=== PATIENT | male | born 1995 ===

== ENCOUNTER 2018-07-02 21:28 | Emergency (ER) | payer SELFPAY ==
[2018-07-02 21:36] VITALS: BP 145/84
[2018-07-02] MEDS ORDERED: Tetracaine 0.5% OPTH.SOL 4 ML* 1 DROP BTL ONE (21:39)
[2018-07-02] MEDS ORDERED: Fluorescein Sodium TOPICAL* 1 MG TEST STRIP ONE (21:39)
[2018-07-02] MEDS ORDERED: BSS OPTH.SOL* BTL ONE (21:39)
--- NOTE | 2018-07-02 22:01 | UC ---
Eye Complaint HPI - HPI Summary HPI Summary: feels like his soft contact lens is up under his eye lid- - History of Current Complaint Chief Complaint: UCEye Stated Complaint: EYE COMPLAINT Time Seen by Provider: 07/02/18 21:47 Hx Obtained From: Patient Onset/Duration: Sudden Onset, Lasting Hours Timing: Constant Pain Intensity: 2 Pain Scale Used: 0-10 Numeric Character: Foreign Body Sensation Aggravating Factor(s): Nothing Alleviating Factor(s): Nothing Associated Signs And Symptoms: Positive: Negative - Allergies/Home Medications Allergies/Adverse Reactions: Allergies Allergy/AdvReac Type Severity Reaction Status Date / Time No Known Allergies Allergy Verified 07/02/18 21:36 Home Medications: Home Medications NK [No Home Medications Reported] 07/02/18 [History Confirmed 07/02/18] PMH/Surg Hx/FS Hx/Imm Hx Previously Healthy: Yes - Surgical History Surgical History: None - Family History Known Family History: Positive: None - Social History Occupation: Employed Full-time Lives: With Family Alcohol Use: None Substance Use Type: None Smoking Status (MU): Never Smoked Tobacco Review of Systems All Other Systems Reviewed And Are Negative: Yes Constitutional: Positive: Negative Skin: Positive: Negative Eyes: Positive: Drainage - clear, Eye Redness - os ENT: Positive: Negative Respiratory: Positive: Negative Cardiovascular: Positive: Negative Gastrointestinal: Positive: Negative Genitourinary: Positive: Negative Motor: Positive: Negative Neurovascular: Positive: Negative Musculoskeletal: Positive: Negative Neurological: Positive: Negative Psychological: Positive: Negative Is Patient Immunocompromised?: No Physical Exam Triage Information Reviewed: Yes Appearance: Well-Appearing, No Pain Distress, Well-Nourished Vital Signs: Initial Vital Signs Temp 98 F 07/02/18 21:32 Pulse 77 07/02/18 21:32 Resp 16 07/02/18 21:32 BP 145/84 07/02/18 21:32 Pulse Ox 98 07/02/18 21:32 Vital Signs Reviewed: Yes Eye Exam: Normal Eyes: Positive: Conjunctiva Inflamed - os, Discharge - clear ENT Exam: Normal ENT: Positive: Normal ENT inspection, Hearing grossly normal. Negative: Trismus , Muffled voice, Hoarse voice Dental Exam: Normal Neck exam: Normal Neck: Positive: Supple, Nontender Respiratory Exam: Normal Respiratory: Positive: Chest non-tender, No respiratory distress, No accessory muscle use Cardiovascular Exam: Normal Cardiovascular: Positive: RRR, Pulses Normal, Brisk Capillary Refill Musculoskeletal Exam: Normal Musculoskeletal: Positive: Strength Intact, ROM Intact, No Edema Neurological Exam: Normal Neurological: Positive: Alert, Muscle Tone Normal Psychological Exam: Normal Skin Exam: Normal Re-Evaluation - Re-Evaluation First Eval Change: Unchanged - eye stained, and lid inverted, examined myself and Dr. 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 Discharge - Sign-Out/Discharge Documenting (check all that apply): Patient Departure All imaging exams completed and their final reports reviewed: No Studies - Discharge Plan Condition: Stable Disposition: HOME Patient Education Materials: Eye Foreign Body (ED), Hypertension (ED) Referrals: [facility] [Outside] - 2 Weeks Additional Instructions: Follow with you eye care doctor or return as needed - Billing Disposition and Condition Condition: STABLE Disposition: Home - Attestation Statements Provider Attestation: Per institutional requirements, I have reviewed the chart, however, I was not consulted specifically or made aware of this patient by the midlevel provider. I did not personally evaluate, interact with , or disposition this patient.
== END 2018-07-02 22:20 | disposition home or self-care (01) ==
LOC: UCEAST 21:28
DX: H18.822 Corneal disorder due to contact lens, left eye (principal)
CPT/HCPCS: 99201; A9270-GY; G0463

== ENCOUNTER 2018-08-15 17:13 | Emergency (ER) | payer BC ==
--- NOTE | 2018-08-15 17:24 | UC ---
FLU HPI - HPI Summary HPI Summary: 23 yo male presents with flu like symptoms. He tells me that 1 week ago he develop sinus congestion, dry cough, and sore throat with a fever of 102F. Fever lasted 2-3 days and then resolved. Over the last 4 days he has had some nausea and loose stools about 4-5 times a day, but remains afebrile. He has been taking mucinex and ibuprofen OTC for his symptoms with good relief. He is eating and drinking, but says it is decreased due to nausea. Denies fever, chills, SOB, chest pain, abdominal pain, dysuria. No recent travel or anbx use. - History of Current Complaint Stated Complaint: FLU LIKE SYMP Time Seen by Provider: 08/15/18 17:24 Hx Obtained From: Patient Onset/Duration: Gradual Onset Severity Currently: Mild Severity Initially: Mild Pain Intensity: 3 Pain Scale Used: 0-10 Numeric - Allergy/Home Medications Allergies/Adverse Reactions: Allergies Allergy/AdvReac Type Severity Reaction Status Date / Time No Known Allergies Allergy Verified 08/15/18 17:29 Home Medications: Home Medications Guaifenesin/Dextromethorphan [Mucinex Dm ER 600-30 mg Tablet] 1 each PO ONCE PRN 08/15/18 [History Confirmed 08/15/18] Ibuprofen TAB* [Advil TAB*] 400 mg PO Q6H PRN 08/15/18 [History Confirmed ] PMH/Surg Hx/FS Hx/Imm Hx - Additional Past Medical History Additional PMH: None - Surgical History Surgical History: None - Family History Known Family History: Positive: None - Social History Occupation: Employed Full-time Lives: With Family Alcohol Use: None Substance Use Type: None Smoking Status (MU): Never Smoked Tobacco Review of Systems All Other Systems Reviewed And Are Negative: Yes Constitutional: Positive: Negative Skin: Positive: Negative Eyes: Positive: Negative ENT: Positive: Sinus Congestion Respiratory: Positive: Cough Cardiovascular: Positive: Negative Gastrointestinal: Positive: Diarrhea, Nausea Genitourinary: Positive: Negative Neurovascular: Positive: Negative Neurological: Positive: Negative Psychological: Positive: Negative Physical Exam - Summary Physical Exam Summary: GENERAL: NAD. WDWN. No pain distress. SKIN: No rashes, sores, lesions, or open wounds. HEENT: Head: AT/NC Eyes: EOM intact. Conjunctiva clear without inflammation or discharge. Ears: Hearing grossly normal. TMs intact, no bulging, erythema, or edema. Nose: Nasal mucosa pink and moist. NTTP maxillary and frontal sinus. Throat: Posterior oropharynx without exudates, erythema, or tonsillar enlargement. Uvula midline. NECK: Supple. Nontender. No lymphadenopathy. CHEST: CTAB. No r/r/w. No accessory muscle use. Breathing comfortably and in no distress. CV: RRR. Without m/r/g. Pulses intact. Cap refill <2seconds ABDOMEN: Soft. NTTP. No distention or guarding. No organomegaly. No CVA tenderness. Bowel sounds present NEURO: Alert. PSYCH: Age appropriate behavior. Triage Information Reviewed: Yes Vital Signs: Vital Signs: Temp Pulse Resp BP Pulse Ox 97 F 95 16 150/70 98 08/15/18 17:24 08/15/18 17:24 08/15/18 17:24 08/15/18 17:24 08/15/18 17:24 Laboratory Tests 08/15/18 17:34 Influenza A (Rapid) Negative Influenza B (Rapid) Negative Vital Signs Reviewed: Yes Flu Course/Dx - Course Course Of Treatment: POC flu negative. Exam is WNL, pt is afebrile and well appearing. I offered him IVF with zofran and/or obtaining labwork today to assess for electrolyte disturbance or underlying infection, but he declined. I suspect his symptoms are likely viral and advised to try a BRAT diet and will rx for zofran. May also try immodium OTC to slow his diarrhea. F/u if symptoms do not improve. Pt voiced understanding and is in agreement with the plan. - Differential Dx/Diagnosis Provider Diagnosis: Diarrhea, Nausea Discharge - Sign-Out/Discharge Documenting (check all that apply): Patient Departure All imaging exams completed and their final reports reviewed: No Studies - Discharge Plan Condition: Stable Disposition: HOME Prescriptions: Ondansetron ODT TAB* [Zofran 4 MG Odt TAB*] 4 mg PO Q8H PRN #12 tab.odt PRN Reason: Nausea Patient Education Materials: Acute Diarrhea (ED), Viral Syndrome (ED) Referrals: No Primary Care Phys,NOPCP [Primary Care Provider] - Additional Instructions: If you develop a fever, shortness of breath, chest pain, new or worsening symptoms - please call your PCP or go to the ED. Your blood pressure was mildly elevated at todays visit. Please see your primary provider within 4 weeks for recheck and re-evaluation. May try taking Immodium over the counter as directed to slow your diarrhea - Billing Disposition and Condition Condition: STABLE Disposition: Home
[2018-08-15 17:29] VITALS: BP 150/70
[2018-08-15 17:45] LABS: Influenza A Molecular NEGATIVE (Negative); Influenza B Molecular NEGATIVE (Negative)
== END 2018-08-15 18:00 | disposition home or self-care (01) ==
LOC: UCEAST 17:13
DX: R19.7 Diarrhea, unspecified (principal); R11.0 Nausea; J02.9 Acute pharyngitis, unspecified; R50.9 Fever, unspecified
CPT/HCPCS: 99212; G0463